=== PATIENT | male | born 1975 | race African-American/Black ===

== ENCOUNTER 2018-05-05 19:07 | Emergency (ER) | payer OTHER ==
[~2018-05-05] VITALS: Ht 175.3 cm; Wt 77.1 kg
[~2018-05-05 19:07] MED LIST: IBUPROFEN600 MG ORAL
[2018-05-05 19:08] VITALS: BP 122/82
--- NOTE | 2018-05-05 19:08 | NUR ---
ED Nurse Note: Patient biba RA [id number] for a behaviroal complaint, girlfriend states that the patient has "been threatening to kill himself" however at time of arrival patient has no plans to hurt himself, complains of no pain. pt denies any pain. pt noted to have slurred speech. pt girlfriend on bedside. lapd on bedside. discussing to pt regarding the 5150 hold.
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
[2018-05-05 20:31] LABS: BASOPHILS % (AUTO) 1.6 % (0.0-2.0); EOSINOPHILS % (AUTO) 1.6 % (0.0-3.0); HEMATOCRIT 40.5 % (42.0-52.0); LYMPHOCYTES % (AUTO) 46.7 % (20.0-45.0); MEAN CORPUSCULAR VOLUME 101 FL (80-99); MONOCYTES % (AUTO) 11.2 % (1.0-10.0); NEUTROPHILS % (AUTO) 38.9 % (45.0-75.0); PLATELET COUNT 203 K/UL (150-450); RED CELL DISTRIBUTION WIDTH 12.3 % (11.6-14.8); WHITE BLOOD COUNT 4.8 K/UL (4.8-10.8)
[2018-05-05 20:46] LABS: ALANINE AMINOTRANSFERASE 26 U/L (12-78); ALBUMIN 4.5 G/DL (3.4-5.0); ALBUMIN/GLOBULIN RATIO 1.1 (1.0-2.7); ALKALINE PHOSPHATASE 63 U/L (46-116); ANION GAP 10 mmol/L (5-15); ASPARTATE AMINO TRANSFERASE 23 U/L (15-37); BILIRUBIN,TOTAL 0.3 MG/DL (0.2-1.0); BLOOD UREA NITROGEN 8 mg/dL (7-18); CALCIUM 8.3 MG/DL (8.5-10.1); CARBON DIOXIDE 29 MMOL/L (21-32); CHLORIDE 108 MMOL/L (98-107); SODIUM 147 MMOL/L (136-145)
--- NOTE | 2018-05-05 21:05 | NUR ---
ED Nurse Note: pt on 5150 hold by lapd, pt belongings kept on locker #2.
--- NOTE | 2018-05-05 23:34 | NUR ---
ED Nurse Note: pt sleeping on gurney, on the room, sitter on bedside. pt has no complaint at the moment. no aggressive behavior. vs within normal limits. will continue to monitor.
[2018-05-05 23:35] VITALS: BP 115/75
--- NOTE | 2018-05-06 00:57 | NUR ---
ED Nurse Note: pt asleep on gurney, not in acute distress. on bedside. rn on bedside as a sitter. will continue to monitor.
--- NOTE | 2018-05-06 05:18 | NUR ---
ED Nurse Note: pt went back to sleep after going to the restroom. pt is calm and cooperative. pt has no complaint. pt on bedside. rn on bedside as a sitter. will continue to monitor
[2018-05-06 05:19] VITALS: BP 118/78
[2018-05-06 07:00] VITALS: BP 115/75
--- NOTE | 2018-05-06 07:08 | NUR ---
ED Nurse Note: pt still sleeping, breakfast ordered. pt on bedside. handoff given to hemal goncalves.
[2018-05-06 09:57] VITALS: BP 120/66
--- NOTE | 2018-05-06 12:00 | NUR ---
ED Nurse Note: PT WAS GIVEN LUNCH TRAY AND TOLERATED WELL THE MEAL
[2018-05-06 18:10] VITALS: BP 128/75
--- NOTE | 2018-05-06 18:10 | NUR ---
ED Nurse Note: PT. FINISHED HIS DINNER TRAY
--- NOTE | 2018-05-06 19:55 | NUR ---
ED Nurse Note: Received report. Pt in bed with sitter awake and on telephone. No dsitress noted. Will continue to monitor.
--- NOTE | 2018-05-06 23:16 | NUR ---
ED Nurse Note: Report given to Cleo RN per CN for continuity of care.
--- NOTE | 2018-05-06 23:17 | NUR ---
ED Nurse Note: Received report from Mary/MAHNAZ. Pt is A/O X 4. VSS.will continue to monitor.
[2018-05-07 00:05] VITALS: BP 124/73
--- NOTE | 2018-05-07 03:04 | NUR ---
ED Nurse Note: Given report to [facility].
--- NOTE | 2018-05-07 03:08 | NUR ---
fered to ED Nurse Note: Pt possible will be transfered at 0730 am.
--- NOTE | 2018-05-07 07:10 | NUR ---
ED Nurse Note: Pt in bed talking on phone. Denies pain or SOB. Pt is AAOx4 sitter at bedside.
[2018-05-07 08:51] VITALS: BP 126/75
[2018-05-07 09:23] VITALS: BP 128/73
[2018-05-07 09:25] VITALS: BP 128/73
--- NOTE | 2018-05-07 09:28 | NUR ---
ED Nurse Note: Pt trans to [facility]. All of Pt belonging taken with him.
== END 2018-05-07 09:35 | disposition short-term general hospital (02) ==
LOC: EDBD 19:07 → EMR 19:41
DX: F10.129 Alcohol abuse with intoxication, unspecified (principal); R45.851 Suicidal ideations
CPT/HCPCS: 36415; 80053; 80307; 80329; 85025; 99285

== ENCOUNTER 2018-10-14 22:42 | Emergency (ER) | payer OTHER ==
[~2018-10-14] VITALS: Ht 180.3 cm; Wt 59.0 kg
--- NOTE | 2018-10-14 22:57 | Emergency Room Report ---
History of Present Illness General Chief Complaint: Lower Extremity Injury Source: Patient Present Illness HPI Is a 43-year-old male with a history of seizure. He presents with chief complaint of bilateral leg pain and swelling. Onset for last 2 days. Throbbing sharp pain. Worse with walking. No shortness of breath. No trauma. No fever chills but denies any other complaint. No chest pain. Allergies: Coded Allergies: No Known Allergies (Unverified , 05/05/18) Patient History Past Medical History: see triage record, old chart reviewed, seizures Past Surgical History: none Pertinent Family History: none Social History: Reports: alcohol use Immunizations: other Reviewed Nursing Documentation: PMH: Agreed; PSxH: Agreed Nursing Documentation-PMH Hx Seizures: Yes Review of Systems Eye: Denies: eye pain, blurred vision ENT: Denies: ear pain, nose congestion, throat swelling Respiratory: Denies: cough, shortness of breath Cardiovascular: Denies: chest pain, palpitations Gastrointestinal: Denies: abdominal pain, diarrhea, nausea, vomiting Musculoskeletal: Reports: muscle pain; Denies: back pain, joint pain Skin: Denies: rash Neurological: Denies: headache, numbness Endocrine: Denies: increased thirst, increased urine Hematologic/Lymphatic: Denies: easy bruising All Other Systems: negative except mentioned in HPI Physical Exam Vital Signs Date Time Temp Pulse Resp B/P (MAP) Pulse Ox O2 Delivery O2 Flow Rate FiO2 10/14/18 22:43 98.2 88 18 131/77 (95) 100 Room Air Vitals normal Sp02 EP Interpretation: reviewed, normal General Appearance: well appearing, no apparent distress, alert Head: normocephalic, atraumatic Eyes: bilateral eye PERRL, bilateral eye EOMI ENT: hearing grossly normal, normal pharynx Neck: full range of motion, supple, no meningismus Respiratory: chest non-tender, lungs clear, normal breath sounds Cardiovascular #1: regular rate, rhythm, no murmur Gastrointestinal: normal bowel sounds, non tender, no mass, no organomegaly, no bruit, non-distended Musculoskeletal: back normal, gait/station normal, normal range of motion, other - Bilateral lower extremity tenderness. 1+ edema. no redness. Neurologic: alert, oriented x3 Psychiatric: mood/affect normal Medical Decision Making Diagnostic Impression: Primary Impression: Peripheral edema Additional Impression: Alcohol intoxication Qualified Codes: F10.920 - Alcohol use, unspecified with intoxication, uncomplicated ER Course Presents with peripheral edema and pain. No evidence of ACS, PE, dissection. No evidence of CHF or bilateral DVT. Patient is sleeping comfortably. Will discharge home. Last Vital Signs Date Time Temp Pulse Resp B/P (MAP) Pulse Ox O2 Delivery O2 Flow Rate FiO2 10/14/18 22:43 98.2 88 18 131/77 (95) 100 Room Air Status: improved Disposition: HOME, SELF-CARE Condition: Stable Scripts Furosemide* (LASIX*) 20 Mg Tablet 20 MG ORAL DAILY, #7 TAB Prov: William Kellogg MD 10/15/18 Ibuprofen* (MOTRIN*) 600 Mg Tablet 600 MG ORAL THREE TIMES A DAY, #30 TAB 0 Refills Prov: William Kellogg MD 10/15/18 Additional Instructions: Follow up your doctor in 7 days. Return if symptoms worsen. Stop drinking alcohol. William Kellogg MD Oct 14, 2018 22:57
[2018-10-14] MEDS ORDERED: Ketorolac 30mg Inj IV ONE (23:00)
--- NOTE | 2018-10-14 23:00 | NUR ---
ED Nurse Note: RECIEVED PT FROM HOME, BIBA HERE WITH C/O BLE SWELLING AND PAIN TO FEET X 1 DAY, PT APPEARS TO BE INTOXICATED AND ADMITS TO DRINKING BEERS BEFORE ARRIVAL, PT DENIES CP OR HAVING ANY S/S BEFORE TODAY, PT NOTED WITH BLE SWELING AT +3 WITH SEVERE PAIN, PULSES ARE PRESENT, PT DENIES ANY OTHER COMPLAINTS OR DISCOMFORTS, PT IMMEDIATELY GOWNED AND PLACED ON CARDIAC MONITORING.
[2018-10-14 23:18] LABS: BASOPHILS % (AUTO) 1.1 % (0.0-2.0); EOSINOPHILS % (AUTO) 1.7 % (0.0-3.0); HEMATOCRIT 37.2 % (42.0-52.0); HEMOGLOBIN 12.6 G/DL (14.2-18.0); LYMPHOCYTES % (AUTO) 37.4 % (20.0-45.0); MEAN CORPUSCULAR VOLUME 101 FL (80-99); MONOCYTES % (AUTO) 11.2 % (1.0-10.0); NEUTROPHILS % (AUTO) 48.5 % (45.0-75.0); PLATELET COUNT 147 K/UL (150-450); RED BLOOD COUNT 3.67 M/UL (4.70-6.10); RED CELL DISTRIBUTION WIDTH 12.3 % (11.6-14.8); WHITE BLOOD COUNT 5.4 K/UL (4.8-10.8)
[2018-10-14 23:30] VITALS: BP 121/72
[2018-10-14 23:33] LABS: ANION GAP 6 mmol/L (5-15); BLOOD UREA NITROGEN 10 mg/dL (7-18); CALCIUM 8.9 MG/DL (8.5-10.1); CARBON DIOXIDE 26 MMOL/L (21-32); CHLORIDE 108 MMOL/L (98-107); CREATININE 0.8 MG/DL (0.55-1.30); POTASSIUM 4.1 MMOL/L (3.5-5.1); SODIUM 140 MMOL/L (136-145)
[2018-10-14 23:39] LABS: APPEARANCE,URINE CLEAR; BILIRUBIN, URINE NEGATIVE (NEGATIVE); COLOR,URINE PALE YELLOW; GLUCOSE, URINE (UA) NEGATIVE (NEGATIVE); KETONES,URINE NEGATIVE (NEGATIVE); LEUKOCYTE ESTERASE ,URINE NEGATIVE (NEGATIVE); NITRITE,URINE NEGATIVE (NEGATIVE); PH,URINE 6 (4.5-8.0); PROTEIN,URINE NEGATIVE (NEGATIVE); UROBILINOGEN,URINE NORMAL MG/DL (0.0-1.0)
[2018-10-15] MEDS ORDERED: FUROSEMIDE20 M1 ORAL (00:27)
[2018-10-15] MEDS ORDERED: IBUPROFEN600 MG ORAL (00:27)
[2018-10-15 00:45] VITALS: BP 111/55
--- NOTE | 2018-10-15 01:00 | NUR ---
ED Nurse Note: MEDS GIVEN FOR PAIN EFFECTIVE, ALSO PT GIVEN LASIX, ABOUT 2000ML OUTPUT RECORDED, PT IS BEING D/C TO HOME, SAT AND EXPLAINED IMPORTANCE OF F/U AND FOLLOWING AFTER CARE INSTRUCTIONS, PT IS AMBULATORY, IV LINE AND ARMBAND REMOVED WITHOUT COMPLICATIONS, NAD NOTED DURING D/C TO HOME.
[2018-10-15 01:10] VITALS: BP 111/55
== END 2018-10-15 01:20 | disposition home or self-care (01) ==
LOC: EDBD 22:42 → EDUNIT# 22:42 → EMR 22:55
DX: R60.0 Localized edema (principal); F10.920 Alcohol use, unspecified with intoxication, uncomplicated; G40.909 Epilepsy, unspecified, not intractable, without status epilepticus
CPT/HCPCS: 36415; 80048; 80307; 81001; 84484; 85025; 96374; 96375; 99284; J1885; J1940